=== PATIENT | female | born 1940 | race Caucasian/White ===

== ENCOUNTER 2016-08-01 18:59 | Emergency (ER) | payer OTHER ==
[~2016-08-01] VITALS: Ht 165.1 cm; Wt 71.7 kg
[~2016-08-01 18:59] MED LIST: ALENDRONATE SOD70 MG PO; AMLODIPINE BESYL5 MG PO; ASPIRIN81 M2 PO; ATORVASTATIN CA40 MG PO; CALCIUM 500 MG1 EACH PO; CITALOPRAM HBR10 MG PO; CITALOPRAM HBR20 MG PO; FISH OIL300 MG PO; FUROSEMIDE20 MG PO; K-DUR20 MEQ PO; LASIX20 MG PO; LEVOTHROID88 MCG PO; LEVOTHYROXINE88 MCG PO; LIPITOR80 MG PO; LOSARTAN POTASS25 MG PO; METOPROLOL SUCC50 MG PO; METOPROLOL TART25 MG PO; NEPHRO-VITE RX1 EACH PO; POTASSIUM CHLO20 ME2 PO; SYMBICORT60 INHALAT IH; TYLENOL REGULA325 MG PO; VENTOLIN HFA18 GM IH
[2016-08-01 20:20] LABS: HEMATOCRIT 37.8 % (36.0-46.0); MCH 32.6 PG (29.0-34.0); MCHC 33.1 G/DL (30.0-36.0); MCV 98.4 FL (83-99); RBC DIS.WIDTH-CV 12.7 % (11.8-14.6); RED BLOOD COUNT 3.84 M/uL (3.80-5.20); WHITE BLOOD COUNT 6.1 K/uL (4.1-10.2)
[2016-08-01 20:28] LABS: CHLORIDE 108 mEq/L (99-109); POTASSIUM 4.9 mEq/L (3.7-5.4); SODIUM 141 mEq/L (136-147)
[2016-08-01 20:30] LABS: GLUCOSE 106 mg/dL (70-99)
[2016-08-01 20:31] LABS: ANION GAP 11 MEQ/L (2-14)
[2016-08-01 20:34] LABS: GFR ESTIMATE (CALCULATED) 51 mL/min/
[2016-08-01 20:35] LABS: UREA NITROGEN (BUN) 21 mg/dL (9-23)
[2016-08-01 20:38] LABS: INTER. NORMALIZED RATIO 1.1; PROTHROMBIN TIME 10.8 (9.2-11.2)
[2016-08-01 21:21] LABS: PLATELET COUNT 83 K/uL (156-360)
[2016-08-01] MEDS ORDERED: TYLENOL WITH C1 EACH PO (22:37)
[2016-08-01 23:01] VITALS: BP 121/66
== END 2016-08-01 23:27 | disposition home or self-care (01) ==
LOC: EME 18:59
PROVIDERS: Emergency Medicine
DX: S80.01XA Contusion of right knee, initial encounter (principal); R51 Headache; W01.0XXA Fall on same level from slipping, tripping and stumbling without subsequent striking against object, initial encounter; Y92.199 Unspecified place in other specified residential institution as the place of occurrence of the external cause; I10 Essential (primary) hypertension; I50.9 Heart failure, unspecified; E78.5 Hyperlipidemia, unspecified; J45.909 Unspecified asthma, uncomplicated; Z79.82 Long term (current) use of aspirin; Z87.891 Personal history of nicotine dependence
CPT/HCPCS: 70450; 73564; 80048; 85027; 85610; 85730; 93005; 99281; 99285